=== PATIENT | male | born 1975 | race American Indian/Alaskan Native ===

== ENCOUNTER 2016-09-27 23:40 | Emergency (ER) | payer BC, MEDICAID ==
[2016-09-28 00:40] LABS: Basophils % (Auto) 0.6 % (0.0-1.8); Eosinophils % (Auto) 1.7 % (0.0-4.3); Hematocrit 41.6 % (35.5-45.6); Hemoglobin 13.8 gm/dl (11.8-15.2); Mean Corpuscular HGB Conc 33 % (32-34); Mean Corpuscular Hemoglobin 30 pg (28-32); Mean Corpuscular Volume 89 fl (84-94); Platelet Count 234 K/mm3 (140-440); Red Blood Count 4.66 M/mm3 (3.65-5.03); Red Cell Distribution Width 13.2 % (13.2-15.2); White Blood Count 7.2 K/mm3 (4.5-11.0)
[2016-09-28 01:03] LABS: Alanine Aminotransferase 27 units/L (7-56); Albumin 3.9 g/dL (3.9-5); Albumin/Globulin Ratio 1.2 %; Alkaline Phosphatase 57 units/L (35-129); Anion Gap 19 mmol/L; BUN/Creatinine Ratio 11.25; Blood Urea Nitrogen 9 mg/dL (9-20); Calcium 8.6 mg/dL (8.4-10.2); Carbon Dioxide 22 mmol/L (22-30); Chloride 98.5 mmol/L (98-107); Glucose 123 mg/dL (75-100); Lipase 42 units/L (13-60); Potassium 3.8 mmol/L (3.6-5.0); Sodium 136 mmol/L (137-145); Total Protein 7.1 g/dL (6.3-8.2)
[2016-09-28 03:17] LABS: Bilirubin,Urine NEG (Negative); Blood,Urine NEG (Negative); Ketones,Urine NEG (Negative); Leukocyte Esterase,Urine NEG (Negative); Nitrite,Urine NEG (Negative); Protein,Urine <15 mg/dL mg/dL (Negative); Urobilinogen,Urine < 2.0 mg/dL (<2.0); WBC,Urine < 1.0 /HPF (0.0-6.0)
--- NOTE | 2016-09-28 06:49 | Emergency Department Report ---
ED Abdominal Pain HPI - General Chief Complaint: Abdominal Pain Stated Complaint: KNOT RT SIDE ABDOMEN Time Seen by Provider: 09/28/16 06:34 Source: patient Mode of arrival: Ambulatory Limitations: No Limitations - History of Present Illness Initial Comments: 40-year-old male presents to the emergency department complaining of a swollen area in his abdomen. Patient states this is been present for 2 weeks. He states it has been constant and that it is getting bigger. He reports occasional sharp pain. This pain does not radiate. He denies nausea, vomiting , diarrhea, or fever. There are no other complaints. MD Complaint: abdominal pain -: Gradual, week(s) (2) Location: RUQ Radiation: none Migration to: no migration Severity: mild Severity scale (0 -10): 0 Quality: sharp Consistency: intermittent, now resolved Improves With: nothing Worsens With: nothing Associated Symptoms: denies other symptoms - Related Data Previous Rx's Medication Instructions Recorded Last Taken Type Cyclobenzaprine [Flexeril] 10 mg PO TID PRN #20 tablet 09/28/16 Unknown Rx Allergies Allergy/AdvReac Type Severity Reaction Status Date / Time No Known Allergies Allergy Verified 08/17/15 14:46 ED Review of Systems ROS: Stated complaint: KNOT RT SIDE CHEST AREA Other details as noted in HPI Comment: All other systems reviewed and negative Gastrointestinal: abdominal pain ED Past Medical Hx - Past Medical History Previous Medical History?: No - Surgical History Past Surgical History?: No - Family History Family history: no significant - Social History Smoking Status: Never Smoker Substance Use Type: None - Medications Home Medications: Home Medications Medication Instructions Recorded Confirmed Last Taken Type Cyclobenzaprine [Flexeril] 10 mg PO TID PRN #20 tablet 09/28/16 Unknown Rx ED Physical Exam - General Limitations: No Limitations General appearance: alert, in no apparent distress - Head Head exam: Present: atraumatic, normocephalic - Eye Eye exam: Present: normal appearance, PERRL, EOMI - ENT ENT exam: Present: normal exam, normal orophraynx, mucous membranes moist - Neck Neck exam: Present: normal inspection, full ROM. Absent: tenderness - Respiratory Respiratory exam: Present: normal lung sounds bilaterally. Absent: respiratory distress - Cardiovascular Cardiovascular Exam: Present: regular rate, normal rhythm, normal heart sounds - GI/Abdominal GI/Abdominal exam: Present: soft, normal bowel sounds. Absent: distended, tenderness - Extremities Exam Extremities exam: Present: normal inspection, full ROM. Absent: tenderness - Back Exam Back exam: Present: normal inspection, full ROM. Absent: tenderness - Neurological Exam Neurological exam: Present: alert, oriented X3. Absent: motor sensory deficit - Skin Skin exam: Present: warm, dry, intact ED Course Vital Signs 09/27/16 09/28/16 23:54 05:01 Temperature 98.4 F 97.8 F Pulse Rate 72 87 Respiratory 16 87 H Rate Blood Pressure 142/83 120/62 [Right] O2 Sat by Pulse 97 97 Oximetry ED Medical Decision Making - Lab Data Result diagrams: 09/28/16 00:16 09/28/16 00:16 - Radiology Data Radiology results: report reviewed, image reviewed CT of abdomen and pelvis reveals findings consistent with focal mesenteritis. There is a fat-containing right inguinal hernia. No other acute findings are noted. - Medical Decision Making Lab and imaging results reviewed and discussed with the patient. Patient will be discharged home at this time to follow up with his primary care physician. - Differential Diagnosis abdominal wall spasm, ventral hernia Critical care attestation.: If time is entered above; I have spent that time in minutes in the direct care of this critically ill patient, excluding procedure time. ED Disposition Clinical Impression: Abdominal wall pain Disposition: DISCHARGED TO HOME OR SELFCARE Is pt being admited?: No Condition: Stable Instructions: Abdominal Pain (ED) Prescriptions: Cyclobenzaprine [Flexeril] 10 mg PO TID PRN #20 tablet PRN Reason: Muscle Spasm Referrals: PRIMARY CARE, [Primary Care Provider] - 3-5 Days Time of Disposition: 07:29
--- NOTE | 2016-09-28 07:21 | Cat Scan Report ---
FINAL REPORT EXAM: CT ABDOMEN PELVIS WO CON HISTORY: swollen, hernia?, pain TECHNIQUE: CT of the abdomen and pelvis without contrast. Coronal and sagittal reformatted images were submitted. PRIORS: None. FINDINGS: There is motion artifact. Mild left basilar atelectasis is seen. The liver, spleen, adrenal glands and pancreas are normal in appearance. There is no definite evidence of cholelithiasis or biliary ductal dilatation. The kidneys are normal in size and contour. There is no evidence of hydronephrosis or nephrolithiasis. There is no evidence of obstruction, free fluid or free air. The colon is fecal filled. Colonic diverticulosis is noted without evidence of acute diverticulitis. The appendix is normal. Increased attenuation of the small bowel mesentery and a few mildly enlarged mesenteric lymph nodes are seen. The aorta is normal in caliber. No abnormally enlarged lymph nodes are identified. The bladder is distended. The seminal vesicles and prostate gland are normal. Small fat containing umbilical hernia. There is a fat containing right inguinal hernia, mildly increase in size. L5-S1 spondylolysis, L4-5 central disc protrusion and severe bilateral neural foraminal narrowing are visualized. IMPRESSION: Findings suggesting mild mesenteritis. Fecal filled colon and colonic diverticulosis. Mild increase in size of the fat containing right inguinal hernia. L5-S1 spondylolysis. L4-5 central disc protrusion.
[2016-09-28 07:59] VITALS: BP 112/67
== END 2016-09-28 08:13 | disposition home or self-care (01) ==
LOC: ED 23:40
DX: R10.11 Right upper quadrant pain (principal)
CPT/HCPCS: 36415; 74176; 80053; 81001; 83690; 85025

== ENCOUNTER 2017-06-04 21:50 | Emergency (ER) | payer MEDICAID ==
--- NOTE | 2017-06-05 03:18 | Emergency Department Report ---
HPI - General Chief Complaint: Sore Throat Time Seen by Provider: 06/05/17 03:14 - HPI HPI: 41-year-old male with no prior medical history presents to ED complaining of throat pain , bodyaches and coughing 2 days. he states intermittent cough that is nonproductive. Patient states he is able to tolerate fluids and food normally. Patient states minimal fever. Patient denies any nausea, vomiting, chest pain, shortness of breath, abdominal pain, dizziness. ED Past Medical Hx - Past Medical History Previous Medical History?: No - Surgical History Past Surgical History?: No - Social History Smoking Status: Never Smoker Substance Use Type: None - Medications Home Medications: Home Medications Medication Instructions Recorded Confirmed Last Taken Type Cyclobenzaprine [Flexeril] 10 mg PO TID PRN #20 tablet 09/28/16 Unknown Rx Ibuprofen [Motrin] 800 mg PO Q8HR PRN #30 tablet 06/05/17 Unknown Rx Nystas/Diphen/Xyl Visc/Mylanta 15 ml MM Q6H PRN #80 ml 06/05/17 Unknown Rx [Magic Mouthwash] guaiFENesin ER [Mucinex ER] 600 mg PO Q12H #20 tablet.er 06/05/17 Unknown Rx guaiFENesin [Robitussin] 200 mg PO Q6HR #80 ml 06/05/17 Unknown Rx ED Review of Systems ROS: Stated complaint: SORE THROAT/LAUGHLIN/BODY ACHES Other details as noted in HPI Physical Exam - Physical Exam Vital Signs: Vital Signs 06/04/17 23:15 Temperature 99.3 F Pulse Rate 94 H Respiratory 18 Rate Blood Pressure 122/88 O2 Sat by Pulse 99 Oximetry Physical Exam: GENERAL: Alert and oriented x3, no apparent distress, Normal Gait, atraumatic. HEAD: Head is normocephalic and a-traumatic. EYES: Extra ocular muscles are intact. Pupils are equal, round, and reactive to light and accommodation. EARS: symetrical, atraumatic, non tender, ear canal clear and moderate cerumen, tympanic membrance non inflamed. gross auditory nml bilaterally. NOSE: Nose symetrical, Nontender,Nares appeared normal. MOUTH:Mouth is well hydrated and without lesions. Tonsils nonerythematous or swollen, Uvula midline, Tongue not elevated. Mucous membranes are moist. Posterior pharynx clear, no exudate or lesions. Patent airways. NECK: Supple. Non edematous, No lymphadenopathy or thyromegaly. No C-spine tenderness LUNGS: Symetrical with respiration, No wheezing, no rales or crackles, CTAB. HEART: S1, S2 present, regular rate and rhythm without murmur, no rubs, no gallops. Non tender to palpation BACK: Full range of motion, no spinal tenderness, nontender to palpation. SKIN: Warm and dry, No lesions, No ulceration or induration present. ED Course Vital Signs 06/04/17 23:15 Temperature 99.3 F Pulse Rate 94 H Respiratory 18 Rate Blood Pressure 122/88 O2 Sat by Pulse 99 Oximetry ED Medical Decision Making - Radiology Data Radiology results: report reviewed, image reviewed FINAL REPORT EXAM: XR CHEST ROUTINE 2V HISTORY: cough/fever/mailaise TECHNIQUE: PA and lateral views of the chest were submitted. FINDINGS: Heart size and mediastinum appear normal. The lungs are clear. Pleural fluid is not seen. The bones and soft tissues are well maintained IMPRESSION: No active chest disease. Transcribed By: RB Dictated By: BATSHEVA LIZAMA MD Electronically Authenticated By: BATSHEVA LIZAMA MD Signed Date/Time: 06/04/17 7135 - Medical Decision Making 41-year-old male presents with viral syndrome. Patient received Motrin, prednisone and 8D Chest x-ray orders. see report above, Rapid strep test negative Fever reduced during the ED stay. Discussed with mother symptomatic relief with [id number] medications. Discussed continue Tylenol and Motrin as needed for fever and pain. Discussed increase fluids and diet intake. Discussed rest much needed. Discussed daily vitamin C for immune booster. Discussed follow-up with aeronautical design engineer in 3-5 days. Patient verbally states she understands and will comply the following instructions and follow-up Vital signs stable. Patient is in no acute distress Critical care attestation.: If time is entered above; I have spent that time in minutes in the direct care of this critically ill patient, excluding procedure time. ED Disposition Clinical Impression: Viral syndrome Pharyngitis Qualifiers: Pharyngitis/tonsillitis etiology: unspecified etiology Qualified Code(s): J02.9 - Acute pharyngitis, unspecified Disposition: DC- TO HOME OR SELFCARE Is pt being admited?: No Does the pt Need Aspirin: No Condition: Stable Instructions: Viral Syndrome (ED), Upper Respiratory Infection (ED), Pharyngitis (ED) Additional Instructions: Make sure to follow up with the primary care physician as discussed. Take all your medications as you've been prescribed. If you have any worsening symptoms or develop new symptoms please return to ED immediately. Prescriptions: guaiFENesin [Robitussin] 200 mg PO Q6HR #80 ml guaiFENesin ER [Mucinex ER] 600 mg PO Q12H #20 tablet.er Ibuprofen [Motrin] 800 mg PO Q8HR PRN #30 tablet PRN Reason: Pain Nystas/Diphen/Xyl Visc/Mylanta [Magic Mouthwash] 15 ml MM Q6H PRN #80 ml PRN Reason: Throat Pain Referrals: PRIMARY CARE, [Primary Care Provider] - 3-5 Days [facility] [Outside] - 3-5 Days [facility] [Outside] - 3-5 Days Forms: Accompanied Note, Work/School Release Form(ED) Time of Disposition: 05:12
[2017-06-05] MEDS ORDERED: ROBITUSSIN PO ONE (03:33)
[2017-06-05] MEDS ORDERED: DELTASONE PO ONE (03:33)
--- NOTE | 2017-06-05 03:56 | XRay Report ---
FINAL REPORT EXAM: XR CHEST ROUTINE 2V HISTORY: cough/fever/mailaise TECHNIQUE: PA and lateral views of the chest were submitted. FINDINGS: Heart size and mediastinum appear normal. The lungs are clear. Pleural fluid is not seen. The bones and soft tissues are well maintained IMPRESSION: No active chest disease.
[2017-06-05] MEDS ORDERED: MOTRIN ONE (04:10)
[2017-06-05] MEDS ORDERED: MOTRIN PO ONE (04:11)
[2017-06-05 05:54] VITALS: BP 122/57
== END 2017-06-05 05:52 | disposition home or self-care (01) ==
LOC: ED 21:50
DX: J02.9 Acute pharyngitis, unspecified (principal); B34.9 Viral infection, unspecified
CPT/HCPCS: 71046; 87430; 99284; J7512